=== PATIENT | male | born 1950 | race Caucasian/White ===

== ENCOUNTER 2016-04-22 15:24 | Emergency (ER) | payer MEDICARE, OTHER ==
[~2016-04-22] VITALS: Ht 170.2 cm; Wt 110.0 kg
[2016-04-22 15:35] VITALS: BP 135/84; PULSE 84; RESP 16; TEMP 98.6; O2SAT 94
[2016-04-22 15:51] VITALS: BP 138/81; PULSE 83; RESP 16; O2SAT 96
[2016-04-22] MEDS ORDERED: SODIUM CHLOR 0.9% 1000 ML INJ 1,000 ML IV ONE ×2 (15:59→16:29)
[2016-04-22] MEDS ORDERED: INSULIN HUMAN REGULAR 1,000 UNITS/10 ML VIAL SQ ONE ×2 (16:00→18:00)
[2016-04-22] MEDS ORDERED: SODIUM CHLORIDE 0.9% FLUSH 5 ML FLUSH IVF PRN (16:00)
--- NOTE | 2016-04-22 16:04 | PD ---
HPI Chief Complaint: Diabetic Time Seen by Provider: 15:55 Travel History International Travel<30 days: No Contact w/Intl Traveler<30days: No Traveled to known affect area: No History of Present Illness HPI 65-year-old male with history of insulin-dependent diabetes, hypertension, CAD, here for evaluation of elevated blood sugar. The patient reports that his insulin pump needle fell out sometime during the night last night. He is here from [place] and plans to drive back today, however did not want to drive back with elevated blood sugar. He is denying any physical complaints. No chest pain or dyspnea. No abdominal pain, nausea, or vomiting. No fevers or recent illness. PFSH Past Medical History Cardiovascular Problems: Yes High Cholesterol: Yes Diabetes: Yes Patient Takes Glucophage: Yes Diminished Hearing: No Hypertension: Yes Respiratory: Yes Influenza Vaccination: Yes Social History Alcohol Use: No Tobacco Use: No (former) Substance Use: No Allergies-Medications (Allergen,Severity, Reaction): Coded Allergies: No Known Allergies (Unverified , 04/22/16) Reported Meds & Prescriptions Reported Meds & Active Scripts Active Reported Victoza Inj (Liraglutide Inj) 18 Mg/3 Ml Pen 1.8 Mg SQ DAILY Metformin (Metformin HCl) 500 Mg Tab 500 Mg PO BIDPC With meals Lipitor (Atorvastatin Calcium) 80 Mg Tab 80 Mg PO DAILY Coreg Cr 24 HR (Carvedilol) 40 Mg Cap 40 Mg PO DAILY Plavix (Clopidogrel Bisulfate) 75 Mg Tab 75 Mg PO DAILY [place]-3 Fish Oil/Vitamin (Fish Oil-Cholecalciferol) 1,000-1,000 Mg Cap 1 Cap PO DAILY Norvasc (Amlodipine Besylate) 10 Mg Tab 10 Mg PO DAILY [insulin pump humalog] Aspir-81 (Aspirin) 81 Mg Tabdr 1 Tab PO DAILY Lasix (Furosemide) 20 Mg Tab 20 Mg PO HS Lasix (Furosemide) 40 Mg Tab 40 Mg PO DAILY Proventil Hfa 6.7 GM Inh (Albuterol Sulfate) 90 Mcg/Act Aer 1 Puff INH Q4H PRN Review of Systems Except as stated in HPI: all other systems reviewed are Neg Physical Exam Narrative GENERAL: Well-developed, well-nourished, comfortable, no acute distress. SKIN: Warm and dry. HEAD: Atraumatic. Normocephalic. EYES: Pupils equal and round. No scleral icterus. No injection or drainage. ENT: Mucous membranes pink and dry. NECK: Trachea midline. No JVD. CARDIOVASCULAR: Regular rate and rhythm. RESPIRATORY: No accessory muscle use. Clear to auscultation. Breath sounds equal bilaterally. GASTROINTESTINAL: Abdomen soft, non-tender, nondistended. MUSCULOSKELETAL: No obvious deformities. No clubbing. No cyanosis. No edema. NEUROLOGICAL: Awake and alert. No obvious cranial nerve deficits. Motor grossly within normal limits. Normal speech. PSYCHIATRIC: Appropriate mood and affect; insight and judgment normal. Data Data Last Documented VS Vital Signs Date Time Temp Pulse Resp B/P Pulse Ox O2 Delivery O2 Flow Rate FiO2 04/22/16 16:34 96 Room Air 04/22/16 15:51 83 18 04/22/16 15:51 138/81 04/22/16 15:35 98.6 Orders Complete Blood Count With Diff (04/22/16 15:59) Comprehensive Metabolic Panel (04/22/16 15:59) Beta Hydroxybutyrate (Acetone) (04/22/16 15:59) Ecg Monitoring (04/22/16 15:59) Iv Access Insert/Monitor (04/22/16 15:59) Oximetry (04/22/16 15:59) NPO (04/22/16 15:59) Sodium Chlor 0.9% 1000 Ml Inj (Ns 1000 M (04/22/16 15:59) Sodium Chlor 0.9% 1000 Ml Inj (Ns 1000 M (04/22/16 16:29) Sodium Chloride 0.9% Flush (Ns Flush) (04/22/16 16:00) Insulin Human Regular Inj (Novolin R Inj (04/22/16 16:00) Insulin Human Regular Inj (Novolin R Inj (04/22/16 17:15) Labs Laboratory Tests Test 04/22/16 16:24 White Blood Count 7.8 TH/MM3 Red Blood Count 5.22 MIL/MM3 Hemoglobin 14.7 GM/DL Hematocrit 43.5 % Mean Corpuscular Volume 83.2 FL Mean Corpuscular Hemoglobin 28.2 PG Mean Corpuscular Hemoglobin 33.9 % Concent Red Cell Distribution Width 13.4 % Platelet Count 220 TH/MM3 Mean Platelet Volume 9.5 FL Neutrophils (%) (Auto) 63.2 % Lymphocytes (%) (Auto) 27.5 % Monocytes (%) (Auto) 5.5 % Eosinophils (%) (Auto) 3.2 % Basophils (%) (Auto) 0.6 % Neutrophils # (Auto) 5.1 TH/MM3 Lymphocytes # (Auto) 2.1 TH/MM3 Monocytes # (Auto) 0.4 TH/MM3 Eosinophils # (Auto) 0.2 TH/MM3 Basophils # (Auto) 0.0 TH/MM3 CBC Comment DIFF FINAL Differential Comment Sodium Level 140 MEQ/L Potassium Level 4.2 MEQ/L Chloride Level 101 MEQ/L Carbon Dioxide Level 29.7 MEQ/L Anion Gap 9 MEQ/L Blood Urea Nitrogen 16 MG/DL Creatinine 1.40 MG/DL Estimat Glomerular Filtration 51 ML/MIN Rate Random Glucose 433 MG/DL Calcium Level 8.8 MG/DL Total Bilirubin 0.7 MG/DL Aspartate Amino Transf 48 U/L (AST/SGOT) Alanine Aminotransferase 68 U/L (ALT/SGPT) Alkaline Phosphatase 106 U/L Total Protein 7.7 GM/DL Albumin 3.5 GM/DL B-Hydroxybutyrate 0.17 MMOL/L MDM Medical Decision Making Medical Screen Exam Complete: Yes Emergency Medical Condition: Yes Differential Diagnosis Hyperglycemia, DKA, metabolic abnormality Narrative Course Vital signs reviewed. CBC is unremarkable. CMP is remarkable for creatinine 1.4, GFR 51, random glucose 433, otherwise unremarkable. Beta hydroxy butyrate 0.17. Patient was given subcutaneous and IV insulin with improvement in blood sugar to the 200s. He is stable for discharge home. When he returns to [place] later today he will be able to reattach his insulin pump. PMD follow-up this week. He was informed on when to return to the emergency department. Diagnosis Primary Impression: Hyperglycemia Referrals: Primary Care Physician 3 days Additional Instructions: Follow-up with your primary care physician this week. Return to the emergency department for worsening symptoms or any other concerns. Disposition: 01 DISCHARGE HOME Condition: Stable Akbar Lang MD Apr 22, 2016 16:04
[2016-04-22 16:34] VITALS: O2SAT 96
[2016-04-22] MEDS ORDERED: ALBU6.7H INH (16:37)
[2016-04-22] MEDS ORDERED: ASPI81TA81 PO (16:37)
[2016-04-22] MEDS ORDERED: FURO1TAB62 PO (16:37)
[2016-04-22] MEDS ORDERED: INSULIN PUMP HUMALOG (16:37)
[2016-04-22] MEDS ORDERED: FURO1TAB60 PO (16:37)
[2016-04-22] MEDS ORDERED: METF500T PO (16:40)
[2016-04-22] MEDS ORDERED: AMLO10 PO (16:40)
[2016-04-22] MEDS ORDERED: LIPI80TA PO (16:40)
[2016-04-22] MEDS ORDERED: CARV40 PO (16:40)
[2016-04-22] MEDS ORDERED: PLAV75TA29 PO (16:40)
[2016-04-22] MEDS ORDERED: OMEGCAP PO (16:40)
[2016-04-22] MEDS ORDERED: VICT18IN SQ (16:40)
[2016-04-22 16:56] LABS: AUTOMATED NEUTROPHIL # 5.1 TH/MM3 (1.8-7.7); BASOPHIL % 0.6 % (0.0-2.0); EOSINOPHIL # 0.2 TH/MM3 (0-0.4); EOSINOPHIL % 3.2 % (0.0-4.0); HEMATOCRIT 43.5 % (39.0-51.0); HEMO FLAGS DIFF FINAL; LYMPH % 27.5 % (9.0-44.0); LYMPHOCYTE # 2.1 TH/MM3 (1.0-4.8); MEAN CELL VOLUME 83.2 FL (80.0-100.0); MEAN CORPUSCULAR HEMOGLOBIN 28.2 PG (27.0-34.0); MEAN CORPUSCULAR HGB CONC 33.9 % (32.0-36.0); MONO % 5.5 % (0.0-8.0); NEUT % 63.2 % (16.0-70.0); PLATELET COUNT 220 TH/MM3 (150-450); RED BLOOD COUNT 5.22 MIL/MM3 (4.50-5.90); RED CELL DISTRIBUTION WIDTH 13.4 % (11.6-17.2); WHITE BLOOD COUNT 7.8 TH/MM3 (4.0-11.0)
[2016-04-22 16:57] LABS: CHLORIDE 101 MEQ/L (98-107); POTASSIUM 4.2 MEQ/L (3.5-5.1); SODIUM (NA) 140 MEQ/L (136-145)
[2016-04-22 17:01] LABS: ANION GAP 9 MEQ/L (5-15); BICARBONATE 29.7 MEQ/L (21.0-32.0)
[2016-04-22] MEDS ORDERED: INSULIN HUMAN REGULAR 1,000 UNITS/10 ML VIAL IVP ONE (17:15)
[2016-04-22 17:30] LABS: ALKALINE PHOSPHATASE 106 U/L (45-117); ALT (GPT) 68 U/L (12-78); AST (GOT) 48 U/L (15-37); BETA-HYDROXYBUTYRATE 0.17 MMOL/L (0.00-0.39); BLOOD UREA NITROGEN 16 MG/DL (7-18); GLOMERULAR FILTRATION RATE 51 ML/MIN (>89); TOTAL BILIRUBIN ADULT 0.7 MG/DL (0.2-1.0)
[2016-04-22 18:21] VITALS: BP 132/74; PULSE 73; RESP 18; O2SAT 96
== END 2016-04-22 18:42 | disposition home or self-care (01) ==
LOC: PHED 15:24
DX: E11.65 Type 2 diabetes mellitus with hyperglycemia (principal); I10 Essential (primary) hypertension; Z79.4 Long term (current) use of insulin
CPT/HCPCS: 80053; 82010; 85025; 96361; 96372; 96374; 99283; J1815; J7030